=== PATIENT | male | born 1960 | race Hispanic/Latino ===

== ENCOUNTER 2019-01-09 12:09 | Emergency (ER) | payer MEDICARE ==
--- NOTE | 2019-01-09 12:21 | Emergency Department Report ---
Chief Complaint: Nausea/Vomiting/Diarrhea Stated Complaint: SOB Time Seen by Provider: 01/09/19 12:17 - HPI History of Present Illness: This is a 58 y.o. male that presents to ER to r/o collapsed lung. Patient was at Dr. Bonner office and sent here with SOB and difficulty breathing. - Exam Vital Signs: Vital Signs 01/09/19 12:17 Temperature 97.8 F Pulse Rate 111 H Respiratory 22 Rate Blood Pressure 133/79 O2 Sat by Pulse 100 Oximetry MSE screening note: Focused history and physical exam performed. Due to findings the following was ordered: CXR and labs ACC for further evaluation. ED Disposition for MSE Condition: Stable
[2019-01-09 12:45] LABS: Hematocrit 30.2 % (35.5-45.6); Hemoglobin 9.3 gm/dl (11.8-15.2); Mean Corpuscular HGB Conc 31 % (32-34); Platelet Count 169 K/mm3 (140-440); Red Blood Count 4.36 M/mm3 (3.65-5.03)
[2019-01-09 12:46] LABS: Mean Corpuscular Volume 69 fl (84-94); Red Cell Distribution Width 21.2 % (13.2-15.2)
[2019-01-09 12:58] LABS: Alanine Aminotransferase 79 units/L (7-56); BUN/Creatinine Ratio 12; Blood Urea Nitrogen 6 mg/dL (9-20); Calcium 8.6 mg/dL (8.4-10.2); Hemolysis Index 7
[2019-01-09 13:49] LABS: Total Cells Counted 100
[2019-01-09 13:50] LABS: Basophils % (Manual) 0 % (0.0-1.8)
[2019-01-09 13:51] LABS: Anisocytosis 1+; Hypochromasia Few; Large Platelets Rare; Platelet Estimate Consistent w Auto; Poikilocytosis 1+
--- NOTE | 2019-01-09 13:53 | XRay Report ---
ROUTINE CHEST, TWO VIEWS: HISTORY: Short of breath. There appears to be bony destruction or healing fracture involving the posterior right eighth rib. Overlying this bony abnormality, there is ill-defined airspace opacity which could represent contusion, early infiltrate or possibly a mass. Discoid atelectasis is suspected in the lingula. The remainder of the lungs are clear. There is also an ill-defined opacity in the right paratracheal region measuring up to 3-4 cm. This may represent the vascular pedicle although adenopathy or infiltrate is difficult to exclude. IMPRESSION: Slightly abnormal chest x-ray as outlined above. Consider further evaluation with CT chest with contrast.
--- NOTE | 2019-01-09 16:35 | Progress Note ---
Subjective Date of service: 01/09/19 Interval history: see my note and may have rib lesion... w/u is pending Objective - Vital Sign Vital Signs - 12hr 01/09/19 01/09/19 12:17 15:42 Temperature 97.8 F Pulse Rate 111 H Respiratory 22 16 Rate Blood Pressure 133/79 O2 Sat by Pulse 100 Oximetry - Laboratory Findings CBC and BMP: 01/09/19 12:26 01/09/19 12:24 Abnormal Lab Findings: Abnormal Labs 01/09/19 01/09/19 12:24 12:26 WBC 3.0 L Hgb 9.3 L Hct 30.2 L MCV 69 L MCH 21 L MCHC 31 L RDW 21.2 H Seg Neuts % (Manual) 72.0 H Monocytes % (Manual) 8.0 H Lymphocytes # (Manual) 0.5 L Sodium 131 L Chloride 97.1 L BUN 6 L Creatinine 0.5 L Glucose 153 H AST 144 H ALT 79 H Alkaline Phosphatase 224 H Albumin 3.0 L
--- NOTE | 2019-01-09 17:44 | Cat Scan Report ---
PROCEDURE: CT ANGIO CHEST TECHNIQUE: Following administration of IV contrast axial helical imaging was performed through the c hest with sagittal and coronal reformatted images and maximum intensity projection images obtained. HISTORY: abnormal CXR COMPARISONS: Chest x-ray also performed today FINDINGS: There is no evidence of infiltrate, pneumothorax or pleural fluid collection. The trachea and bronchi are patent. The heart appears to be normal size. The thoracic aorta is normal caliber and without evidence of dissection. There is no evidence of intrathoracic adenopathy. No filling defects are demonstrated within the pulmonary arteries to suggest the presence of pulmonar y artery emboli. There is evidence of numerous bony metastases some with associated abnormal soft tissue. The largest associated abnormal soft tissue is associated with a lytic metastasis involving the sternum on the ri ght. The soft tissue extends anteriorly into the anterior chest wall and posteriorly into the anterio r mediastinum. There is evidence of extension of tumor into the epidural space at the level of T12 and L1. This resu lts in compression of the thecal sac and possibly the cord at these levels. The visualized portion of the upper abdomen is notable for splenomegaly and a mass in the upper abdom en contiguous with the caudate lobe of the liver. Whether or not this is a liver mass or magdalene metast asis is unclear. The right adrenal gland is enlarged and heterogeneous in appearance suggestive of adrenal gland metas tasis. Free fluid is demonstrated in the right upper quadrant. IMPRESSION: 1. Numerous bony metastases, some with associated soft tissue mass. 2. There is evidence of extension of tumor into the epidural space at the T12 and L1 levels. MRI would be helpful for further evaluation of this finding. 3. No evidence of pulmonary artery emboli. 4. Splenomegaly. 5. Right adrenal gland mass. Probable metastasis. 6. Mass in the caudate lobe of the liver versus mass adjacent to the caudate lobe of the liver. The above findings were discussed with ZULMA Gonzalez at 5:40 PM January 09, 2019. This document is electronically signed by Katherin Tavera MD., January 09 2019 05:43:00 PM ET
[2019-01-09] MEDS ORDERED: NACL 0.9% 1000 ML 1,000 ML IV ONE (17:50)
[2019-01-09] MEDS ORDERED: PERCOCET 5/325 PO ONE (17:50)
--- NOTE | 2019-01-09 17:54 | Emergency Department Report ---
<TIKIALAN Leslie - Last Filed: 01/09/19 19:54> ED General Adult HPI - General Chief complaint: Nausea/Vomiting/Diarrhea Stated complaint: SOB Time Seen by Provider: 01/09/19 12:17 Source: patient Mode of arrival: Wheelchair Limitations: No Limitations - History of Present Illness Initial comments: The patient is a 58-year-old ill-appearing male that was sent to us from his primary care doctor's office for evaluation of his shortness of breath. The chest x-ray was completed and was noted to be abnormal so the patient was then sent for CT angio. Patient reports that he has been short of breath, that he is having chest wall pain, abdominal pain, he also has masses that are new projecting from his anterior chest wall. One is right midclavicular line at approximately second intercostal space. The other is left anterior lower thoracic rib area. He also has a known bulging hernia: That he states is getting larger. Patient reports weakness and fatigue. Patient reports chronic pain since 2009 for which he is on [place] and [place]. He states that he is out of his medicines because he's had to take escalating doses. He sees a chronic pain doctor for this. Patient also states that he undergo he spent a week at [facility] in [place] and was diagnosed with cirrhosis of the liver. Home medications are [place], Doris and potassium for leg spasms. Patient does smoke and has occasional marijuana. He has not drank in 2 years. Patient biological mother is alive and well. He does not know his father. Past surgical history patient denies any major surgeries On exam patient denies hypertension, hyperlipidemia, coronary artery disease, previous HI, stroke, and he denies ever being told that he had cancer. Severity scale (0 -10): 9 - Related Data Home Medications Medication Instructions Recorded Confirmed Last Taken HYDROcodone/ACETAMINOPHEN 1 tab PO 4XD PRN 09/04/14 09/04/14 Unknown [Hydrocodone-Acetaminophnen(Nf) 10/500 mg Tab] Oxycodone HCl [Roxicodone] 15 mg PO TID 09/04/14 09/04/14 Unknown Allergies Allergy/AdvReac Type Severity Reaction Status Date / Time No Known Allergies Allergy Unverified 09/04/14 12:37 ED Review of Systems Comment: All other systems reviewed and negative Constitutional: denies: chills, fever Eyes: denies: eye pain ENT: denies: throat pain Respiratory: see HPI, shortness of breath. denies: cough Cardiovascular: as per HPI, chest pain Endocrine: denies: excessive sweating Gastrointestinal: as per HPI, abdominal pain Genitourinary: as per HPI, dysuria Musculoskeletal: as per HPI, back pain Skin: as per HPI, lesions Neurological: as per HPI, weakness Psychiatric: denies: depression Hematological/Lymphatic: denies: easy bleeding ED Past Medical Hx - Past Medical History Hx GERD: Yes Hx Arthritis: Yes Additional medical history: chronic pain, cirrhosis of the liver, stopped drinking 2 y ago. - Surgical History Past Surgical History?: No - Family History Family history: no significant - Social History Smoking Status: Current Every Day Smoker Substance Use Type: Marijuana - Medications Home Medications: Home Medications Medication Instructions Recorded Confirmed Last Taken Type HYDROcodone/ACETAMINOPHEN 1 tab PO 4XD PRN 09/04/14 09/04/14 Unknown History [Hydrocodone-Acetaminophnen(Nf) 10/500 mg Tab] Oxycodone HCl [Roxicodone] 15 mg PO TID 09/04/14 09/04/14 Unknown History ED Physical Exam - General Limitations: No Limitations General appearance: alert - Head Head exam: Present: normocephalic - Eye Eye exam: Present: PERRL - ENT ENT exam: Present: mucous membranes moist - Neck Neck exam: Present: normal inspection - Respiratory Respiratory exam: Present: normal lung sounds bilaterally - Cardiovascular Cardiovascular Exam: Present: tachycardia - GI/Abdominal GI/Abdominal exam: Present: soft - Rectal Rectal exam: Present: deferred - Extremities Exam Extremities exam: Present: normal inspection - Back Exam Back exam: Present: normal inspection. Absent: CVA tenderness (R), CVA tenderness (L), muscle spasm, paraspinal tenderness, vertebral tenderness - Neurological Exam Neurological exam: Present: alert - Skin Skin exam: Present: warm ED Medical Decision Making - Lab Data Result diagrams: 01/09/19 12:26 01/09/19 12:24 - Radiology Data Radiology results: report reviewed, image reviewed - Medical Decision Making Lab Results 01/09/19 01/09/19 01/09/19 Range/Units 12:24 12:24 12:26 WBC 3.0 L (4.5-11.0) K/mm3 RBC 4.36 (3.65-5.03) M/mm3 Hgb 9.3 L (11.8-15.2) gm/dl Hct 30.2 L (35.5-45.6) % MCV 69 L (84-94) fl MCH 21 L (28-32) pg MCHC 31 L (32-34) % RDW 21.2 H (13.2-15.2) % Plt Count 169 (140-440) K/mm3 Lymph % (Auto) Switch Inspector Ballard % (Auto) Switch Inspector Eos % (Auto) Switch Inspector Baso % (Auto) Switch Inspector Lymph # Switch Inspector Ballard # Switch Inspector Eos # Switch Inspector Baso # Switch Inspector Add Manual Diff Complete Total Counted 100 Seg Neutrophils % Switch Inspector Seg Neuts % (Manual) 72.0 H (40.0-70.0) % Band Neutrophils % 0 % Lymphocytes % (Manual) 18.0 (13.4-35.0) % Reactive Lymphs % (Man) 0 % Monocytes % (Manual) 8.0 H (0.0-7.3) % Eosinophils % (Manual) 2.0 (0.0-4.3) % Basophils % (Manual) 0 (0.0-1.8) % Metamyelocytes % 0 % Myelocytes % 0 % Promyelocytes % 0 % Blast Cells % 0 % Nucleated RBC % Not Reportable Seg Neutrophils # Switch Inspector Seg Neutrophils # Man 2.2 (1.8-7.7) K/mm3 Band Neutrophils # 0.0 K/mm3 Lymphocytes # (Manual) 0.5 L (1.2-5.4) K/mm3 Abs React Lymphs (Man) 0.0 K/mm3 Monocytes # (Manual) 0.2 (0.0-0.8) K/mm3 Eosinophils # (Manual) 0.1 (0.0-0.4) K/mm3 Basophils # (Manual) 0.0 (0.0-0.1) K/mm3 Metamyelocytes # 0.0 K/mm3 Myelocytes # 0.0 K/mm3 Promyelocytes # 0.0 K/mm3 Blast Cells # 0.0 K/mm3 WBC Morphology Not Reportable Hypersegmented Neuts Not Reportable Hyposegmented Neuts Not Reportable Hypogranular Neuts Not Reportable Smudge Cells Not Reportable Toxic Granulation Not Reportable Toxic Vacuolation Not Reportable Dohle Bodies Not Reportable Pelger-Huet Anomaly Not Reportable Alexander Rods Not Reportable Platelet Estimate Consistent w auto Clumped Platelets Not Reportable Plt Clumps, EDTA Not Reportable Large Platelets Rare Giant Platelets Not Reportable Platelet Satelliting Not Reportable Plt Morphology Comment Not Reportable RBC Morphology Not Reportable Dimorphic RBCs Not Reportable Polychromasia Not Reportable Hypochromasia Few Poikilocytosis 1+ Anisocytosis 1+ Microcytosis Not Reportable Macrocytosis Not Reportable Spherocytes Not Reportable Pappenheimer Bodies Not Reportable Sickle Cells Not Reportable Target Cells Not Reportable Tear Drop Cells Not Reportable Ovalocytes Not Reportable Helmet Cells Not Reportable [place] Bodies Not Reportable [place] Rings Not Reportable Leann Cells Not Reportable Bite Cells Not Reportable Crenated Cell Not Reportable Elliptocytes Few Acanthocytes (Spur) Not Reportable Rouleaux Not Reportable Hemoglobin C Crystals Not Reportable Schistocytes Not Reportable Malaria parasites Not Reportable Lauri Bodies Not Reportable Hem Pathologist Commnt No Sodium 131 L (137-145) mmol/L Potassium 4.0 (3.6-5.0) mmol/L Chloride 97.1 L (98-107) mmol/L Carbon Dioxide 23 (22-30) mmol/L Anion Gap 15 mmol/L BUN 6 L (9-20) mg/dL Creatinine 0.5 L (0.8-1.5) mg/dL Estimated GFR > 60 ml/min BUN/Creatinine Ratio 12 % Glucose 153 H (75-100) mg/dL Calcium 8.6 (8.4-10.2) mg/dL Total Bilirubin 0.60 (0.1-1.2) mg/dL AST 144 H (5-40) units/L ALT 79 H (7-56) units/L Alkaline Phosphatase 224 H (35-129) units/L Total Protein 8.1 (6.3-8.2) g/dL Albumin 3.0 L (3.9-5) g/dL Albumin/Globulin Ratio 0.6 % Lipase 28 (13-60) units/L Vital Signs 01/09/19 01/09/19 12:17 15:42 Temperature 97.8 F Pulse Rate 111 H Respiratory 22 16 Rate Blood Pressure 133/79 O2 Sat by Pulse 100 Oximetry labs noted urine pending chest xray noted CT results received from radiology- see report [address] findings I again asked pt if he had ever been told he had cancer and he said no. NS percocet for pain [address] Mcintosh [address] Chaves has been updated on pt status. 1934 CT head no findings 1999 CT abd pending Sister updated on pt condition Family is coming to hosp Legal next of kin eldest daughter who lives out of town. Dispo per Dr Mcintosh ED Disposition Clinical Impression: Intractable pain, Metastatic disease Disposition: DC/TX-70 ANOTHER TYPE HLTHCARE Does the pt Need Aspirin: No Condition: Serious [facility]: [facility] [Primary Care Provider] - 3-5 Days Time of Disposition: 19:33 <NELSON MCINTOSH - Last Filed: 01/09/19 21:05> ED Review of Systems ROS: Stated complaint: SOB Other details as noted in HPI ED Course Vital Signs 01/09/19 01/09/19 01/09/19 12:17 15:42 18:09 Temperature 97.8 F Pulse Rate 111 H Respiratory 22 16 16 Rate Blood Pressure 133/79 O2 Sat by Pulse 100 Oximetry ED Medical Decision Making - Lab Data Result diagrams: 01/09/19 12:26 01/09/19 12:24 - Medical Decision Making 58-year-old male with probable metastatic disease. Patient sent to ED for chest x-ray due to masses on chest wall. Chest x-ray suspicious for bony destruction of ribs, questionable mass lesions, so CT was ordered. CT chest shows numerous bony metastases, including evidence of extension into T12 and L1 epidural spaces. Patient has history of chronic low back pain for several years, reports no particular increase in back pain, patient reports pain all over. Since seeing his physician for pain management, as has been requiring increased doses of Percocet for his pain. Patient reports radiating pain into left leg 8 months now, with tingling in toes of the left foot. Patient is ambulatory, denies any symptoms related to cauda equina. Hospitalist uncomfortable managing this patient due to spinal lesion, so [facility] contacted for possible transfer. Spoke w/ Dr Overton, neurosurgery from [place], states no emergent neurosurgical intervention necessary at this time. Spoke w/ internal medicine hospitalist Dr Cardoso, accepts transfer to [place]. Critical care attestation.: If time is entered above; I have spent that time in minutes in the direct care of this critically ill patient, excluding procedure time. ED Disposition Is pt being admited?: No Time of Disposition: 21:05
[2019-01-09 18:38] LABS: Bilirubin,Urine NEG (Negative); Blood,Urine SM (Negative); Color,Urine Colorless (Yellow); Mucus,Urine FEW /HPF; Protein,Urine <15 mg/dL mg/dL (Negative); Urobilinogen,Urine < 2.0 mg/dL (<2.0); WBC,Urine < 1.0 /HPF (0.0-6.0)
--- NOTE | 2019-01-09 19:40 | Cat Scan Report ---
PROCEDURE: CT HEAD/BRAIN WO CON TECHNIQUE: Computerized tomography of the head was performed without contrast material. CT DOSE LENGTH PRODUCT: 920.5 mGy-cm. HISTORY: headache COMPARISONS: None currently available. FINDINGS: There is no evidence for acute ischemia. There is no hemorrhage. There is no midline shift. There is no hydrocephalus. There is no mass. Age appropriate trinh-white matter attenuation is noted. There is no calvarial fracture. The temporal bones demonstrate aerated mastoid air cells. The middle ears appear unremarkable. Debris in both external auditory canals. Paranasal sinuses are unremarkable. Globes are intact. IMPRESSION: * No acute intracranial findings. This document is electronically signed by Chris De Los Santos MD., January 09 2019 07:38:53 PM ET
--- NOTE | 2019-01-09 20:47 | Cat Scan Report ---
PROCEDURE: CT ABDOMEN PELVIS WO CON TECHNIQUE: Computerized axial tomography of the abdomen and pelvis was performed without intravenous contrast. This study is performed without intravascular contrast material and its sensitivity for ab dominal and pelvic pathology, including neoplasms, inflammation, abscess, free fluid, thrombosis, art erial dissection and infarction, is reduced compared with a contrast enhanced study. CT DOSE LENGTH PRODUCT: 624.3 mGycm HISTORY: abdominal pain COMPARISONS: None . FINDINGS: Bilateral kidneys are unremarkable. Residual contrast is noted in bilateral renal collecting systems and urinary bladder. Urinary bladder is partially distended with normal outlines. There is mild degre e of prostatomegaly. Aorta is of normal caliber. Mild degree free fluid is noted in the peritoneal ca vity. There is no free air. Gallbladder is distended with mildly thickened rivrea. There are 2 calcifi c densities in the dependent portion of gallbladder each measuring about 5 mm. Liver demonstrates mil dly nodular outlines. Moderate degree of splenomegaly is identified. There is dilated splenoportal ax is. Perigastric varicosities are identified. Left adrenal is unremarkable. A 5 cm x 4 cm soft tissue density lesion is noted in the right suprarenal region. Right adrenal gland is not separately visuali zed. Small bowel loops are within normal limits. Appendix is normal. There is a 6.4 x 1.8 cm fat-cont aining uncomplicated umbilical hernia. An irregular lytic lesion measuring 2 cm x 1 cm is noted invol ving the posterior vertebral body of T12 which appears to be associated with an intraspinal soft tiss ue component which is also extending into the left neural foramen and left paravertebral region. An i ll-defined lytic lesion measuring 1.3 cm is noted involving T11 vertebral body. There is evidence of fusion of L4 and L5 vertebral bodies. A 5.6 x 3.4 cm soft tissue density mass is noted anterior to th e left first sacral foramen which appears to be extending into the left sacral foramen resulting in w idening of the foramen. An irregular lytic lesion with soft tissue component is noted involving left pedicle of L4 measuring 2.6 x 1.6 cm. Left hemisacrum appears to contain irregular ill-defined lytic lesion measuring 4.8 x 2.7 cm. Multiple enlarged periaortic lymph nodes are identified largest measur ing 4.7 x 3.6 cm. There are also a mass lesion located to the right of the celiac axis measuring 6.1 x 4.6 cm most likely representing lymphadenopathy. IMPRESSION: Nodular liver, splenomegaly and dilated splenoportal axis are consistent with cirrhosis. Lytic lesions involving the spine some of them associated with soft tissue components are consistent with metastatic disease. Intraspinal extension noted with possible spinal cord compression. Celiac, and periaortic lymphadenopathy also suspicious for metastatic disease. 5 cm x 4 cm soft tissue density lesion in the right suprarenal region also may represent lymphadenopa thy versus right adrenal mass. Cholelithiasis. Mild degree gallbladder wall thickening may be a nonspecific finding secondary to cir rhosis. However cholecystitis cannot be excluded. Mild degree of ascites Uncomplicated umbilical hernia. This document is electronically signed by Fawad Vargas MD., January 09 2019 08:45:09 PM ET
[2019-01-09 21:24] VITALS: BP 135/75
--- NOTE | 2019-01-10 03:51 | Consultation ---
HISTORY OF PRESENT ILLNESS: A 58-year-old white male transported to the ED of [facility]. The patient presented to my office earlier with a history of confusion, disorientation and not acting like himself. He when presented to the hospital was having difficulty with ambulation, was forgetful, very encephalopathic, confused. Subsequent check of his hematocrit revealed it to be 30. His white blood count was low at 3000. He has an MCV of 69. The patient's chemistry showed that the patient's AST is 144, ALT is 79, albumin is 3.0, alkaline phosphatase 224. Sodium is 131, chloride is 97, and creatinine is 0.5. The patient has had a chest x-ray, which shows questionable adenopathy in the right chest, possibly mass or early infiltrate. He was having difficulty breathing and complained of not feeling well. There is a healing fracture of the posterior right rib with bony destruction or healing fracture in the posterior right rib. He also as well has a bony lesion on the left rib, questionable malignancy. IMPRESSION: This patient is profoundly encephalopathic. He has low hematocrit, low white blood count. Of note is the fact he has a chest x-ray, which shows bony destruction of the posterior right rib and also in the past, he has had a rib lesion noted over the left anterior chest wall, a questionable mass, although I am not aware that this was ever biopsied. They may have ongoing cancer or malignancy but as well he is anemic, very dehydrated, and ill-appearing white male. I will speak further with the Emergency Room physician following evaluation and further assessment. We at this time have a pending CTA of the chest. I do not have the results as yet but would like to review that AISHA. JOB# [id number] CHASE/ADDY
--- NOTE | 2019-01-10 08:24 | Progress Note ---
Subjective Date of service: 01/10/19 Interval history: will recommend that rib fracture site be bioppsied by radilogy... we do not have proven hx of cell specific cancer... number of other medical factors related to liver disease overlay problems Objective - Vital Sign Vital Signs - 12hr 01/09/19 21:22 Temperature 97.7 F Pulse Rate 104 H Respiratory 16 Rate Blood Pressure 135/75 [Left] O2 Sat by Pulse 99 Oximetry - Laboratory Findings CBC and BMP: 01/09/19 12:26 01/09/19 12:24 Abnormal Lab Findings: Abnormal Labs 01/09/19 01/09/19 01/09/19 12:24 12:26 17:36 WBC 3.0 L Hgb 9.3 L Hct 30.2 L MCV 69 L MCH 21 L MCHC 31 L RDW 21.2 H Seg Neuts % (Manual) 72.0 H Monocytes % (Manual) 8.0 H Lymphocytes # (Manual) 0.5 L Sodium 131 L Chloride 97.1 L BUN 6 L Creatinine 0.5 L Glucose 153 H AST 144 H ALT 79 H Alkaline Phosphatase 224 H Albumin 3.0 L Urine pH 8.0 H
--- NOTE | 2019-01-11 13:37 | Progress Note ---
Subjective Date of service: 01/11/19 Interval history: patient transfered to [facility] for evaluation of the epidural mass I called family made them aware of the dx and the ominous dx suspect renal cell cancer as well as cirrhosis Objective - Laboratory Findings CBC and BMP: 01/09/19 12:26 01/09/19 12:24 Abnormal Lab Findings: Abnormal Labs 01/09/19 01/09/19 01/09/19 12:24 12:26 17:36 WBC 3.0 L Hgb 9.3 L Hct 30.2 L MCV 69 L MCH 21 L MCHC 31 L RDW 21.2 H Seg Neuts % (Manual) 72.0 H Monocytes % (Manual) 8.0 H Lymphocytes # (Manual) 0.5 L Sodium 131 L Chloride 97.1 L BUN 6 L Creatinine 0.5 L Glucose 153 H AST 144 H ALT 79 H Alkaline Phosphatase 224 H Albumin 3.0 L Urine pH 8.0 H
--- NOTE | 2019-01-13 10:03 | Progress Note ---
Subjective Date of service: 01/13/19 Interval history: DO NOT HAVE ANY UPDATES FROM FAMILY AWAIT CATRACHITO EVAL SUSPECT SURGERY DONE AT [facility] did not detect tumor previously Objective - Laboratory Findings CBC and BMP: 01/09/19 12:26 01/09/19 12:24 Abnormal Lab Findings: Abnormal Labs 01/09/19 01/09/19 01/09/19 12:24 12:26 17:36 WBC 3.0 L Hgb 9.3 L Hct 30.2 L MCV 69 L MCH 21 L MCHC 31 L RDW 21.2 H Seg Neuts % (Manual) 72.0 H Monocytes % (Manual) 8.0 H Lymphocytes # (Manual) 0.5 L Sodium 131 L Chloride 97.1 L BUN 6 L Creatinine 0.5 L Glucose 153 H AST 144 H ALT 79 H Alkaline Phosphatase 224 H Albumin 3.0 L Urine pH 8.0 H
== END 2019-01-09 23:00 | disposition other institution (70) ==
LOC: ED 12:09
DX: R07.89 Other chest pain (principal); K21.9 Gastro-esophageal reflux disease without esophagitis; M19.90 Unspecified osteoarthritis, unspecified site; F17.200 Nicotine dependence, unspecified, uncomplicated; F12.10 Cannabis abuse, uncomplicated; R51 Headache
CPT/HCPCS: 36415; 70450; 71046; 71275; 74176; 80053; 81001; 83690; 85007; 85025; 96360; 99285; J7030; Q9967